=== PATIENT | male | born 1980 | race Caucasian/White ===

== ENCOUNTER 2018-04-01 14:27 | Observation (INO) ==
[2018-04-01 15:38] LABS: Baso # (Auto) 0.1 th/mm3 (0.0-0.2); Baso % (Auto) 0.7 % (0.0-2.0); Eos # (Auto) 0.3 th/mm3 (0.0-0.4); Eos % (Auto) 3.3 % (0.0-4.0); Hematocrit 41.1 % (39.0-51.0); Hemoglobin 14.1 gm/dL (13.0-17.0); Lymph # (Auto) 1.4 th/mm3 (1.0-4.8); Lymph % (Auto) 18.2 % (9.0-44.0); Mean Corpuscular HGB Conc 34.4 % (32.0-36.0); Mean Corpuscular Hemoglobin 28.6 pg (27.0-34.0); Mean Corpuscular Volume 83.3 fL (80.0-100.0); Mean Platelet Volume 7.2 fL (7.0-11.0); Neut # (Auto) 4.9 th/mm3 (1.8-7.7); Neut % (Auto) 64.8 % (16.0-70.0); Platelet Count 248 th/mm3 (150-450); Red Blood Count 4.93 mil/mm3 (4.50-5.90); Red Cell Distribution Width 13.7 % (11.6-17.2); White Blood Count 7.6 th/mm3 (4.0-11.0)
--- NOTE | 2018-04-01 15:59 | XR ---
EXAM DATE: 04/01/2018 3:37 PM EDT AGE/SEX: 37 years / Male INDICATIONS: . Chest pain. CLINICAL DATA: This is the patient's initial encounter. Patient reports that signs and symptoms have been present for 2 weeks and indicates a pain score of 5/10. MEDICAL/SURGICAL HISTORY: . High cholesterol, hypertension. None. COMPARISON: No prior exams available for comparison. FINDINGS: PA and lateral views of the chest demonstrate the lungs to be symmetrically aerated without evidence of mass, infiltrate or effusion. The cardiomediastinal contours are unremarkable. Osseous structures are intact. CONCLUSION: Negative examination. Electronically signed by: Sloan Moore MD 04/01/2018 3:58 PM EDT
[2018-04-01 16:04] LABS: Alanine Aminotransferase 65 U/L (12-78); Albumin 3.9 g/dL (3.4-5.0); Anion Gap 7 meq/L (5-15); Aspartate Aminotransferase 40 U/L (15-37); Blood Urea Nitrogen 18 mg/dL (7-18); Carbon Dioxide 28.6 meq/L (21.0-32.0); Chloride 107 meq/L (98-107); Glomerular Filtration Rate 75 mL/min (>89); Glucose,Random 82 mg/dL (74-106); Potassium 4.1 meq/L (3.5-5.1); Sodium 143 meq/L (136-145)
[2018-04-01 16:08] LABS: Alkaline Phosphatase 74 U/L (45-117); Total Protein 6.9 g/dL (6.4-8.2); Troponin I 0.19 ng/mL (0.02-0.05)
--- NOTE | 2018-04-01 16:29 | ED ---
HPI General Chief Complaint: Chest Pain Stated Complaint: High BP/ Pain Time Seen by Provider: 04/01/18 16:05 Source: patient Mode of arrival: ambulatory Limitations: no limitations History of Present Illness HPI narrative: 37-year-old male with PMH of HTN, PTSD presents to the ED for evaluation of 2-week history of 5/10 left-sided chest pain. Pain is substernal and anterolateral. Onset at rest. Aching in quality with occasional sharp pains. Rated 8/10. He states that he noticed that the pain got worse when he was cycling. It was improved by resting. Patient endorses palpitations. He states "sometimes I wake up and my heart rate is between 110 and 120." He endorses increased appetite. He endorses occasional shortness of breath. He denies nausea, vomiting, diaphoresis, cough, leg pain, history of blood clot, recent history of immobilization. He endorses distant history of drug use, in remission for 4 years. He endorses using IV drugs "twice." He endorses social alcohol use. He endorses familial history of [place], states "all my male relatives " have heart disease. He states his father just had a "99% blockage" but is unsure of the vessel. He states that the youngest male relative was in his 40s. He endorses history of elevated troponin. He states that he had a stress test in 2010 that was negative. 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 He states that his cholesterol levels were "fine" at last PCP visit in May. Complete Quality Measures for STEMI Alert Patients Related Data Home Medications Medication Instructions Recorded Confirmed lamotrigine [Lamictal] 100 mg PO HS 04/01/18 04/01/18 olmesartan 20 mg PO DAILY 04/01/18 04/01/18 prazosin [Minipress] 5 mg PO HS 04/01/18 04/01/18 trazodone 300 mg PO HS 04/01/18 04/01/18 Allergies Allergy/AdvReac Type Severity Reaction Status Date / Time No Known Allergies Allergy Verified 04/01/18 15:10 Review of Systems ROS: all other systems reviewed are negative [facility] Medical History Medical History Complex posttraumatic stress disorder (Acute) Hypercholesteremia (Acute) Hypertension (Acute) Family History Family History Father Family history of acute myocardial infarction Grandparent Family history of acute myocardial infarction Social History Social History Substance History: Past History Second Hand Smoke Exposure: No Smoking Status: Never smoker How Often Do You Have a Drink Containing Alcohol: Monthly or less Recent Travel in [facility] [email or web address] within the Last 8 Weeks: No Recent Out of Country Travel within the Last 8 Weeks: No Immunization History Tetanus Immunization: <5 Years Tetanus Immunization Year if Known: 2015 Hx Influenza Vaccine This Season: Yes Exam Narrative Exam Narrative: GENERAL: Well-nourished, athletically built white male in no acute distress. SKIN: Focused skin assessment warm/dry. HEAD: Atraumatic. Normocephalic. EYES: Pupils equal and round. No scleral icterus. No injection or drainage. ENT: No nasal bleeding or discharge. Mucous membranes pink and moist. NECK: Trachea midline. No JVD. CARDIOVASCULAR: Regular rate and rhythm. No murmur appreciated. RESPIRATORY: No accessory muscle use. Clear to auscultation. Breath sounds equal bilaterally. GASTROINTESTINAL: Abdomen soft, non-tender, nondistended. Hepatic and splenic margins not palpable. MUSCULOSKELETAL: No obvious deformities. No clubbing. No cyanosis. No edema. Homans sign negative bilaterally. NEUROLOGICAL: Awake and alert. No obvious cranial nerve deficits. Motor grossly within normal limits. Normal speech. PSYCHIATRIC: Appropriate mood and affect; insight and judgment normal. Course Initial Documented Vital Signs Temperature 98.1 F 04/01/18 14:49 Pulse Rate 94 H 04/01/18 14:49 Respiratory Rate 16 04/01/18 14:49 Blood Pressure 161/73 H 04/01/18 14:49 Pulse Oximetry 100 04/01/18 14:49 Last Documented Vital Signs Temperature 98.1 F 04/01/18 14:49 Pulse Rate 78 04/01/18 16:14 Respiratory Rate 18 04/01/18 16:14 Blood Pressure 150/88 H 04/01/18 16:14 Pulse Oximetry 100 04/01/18 16:14 Clinical Decision Support PERC Rule Age greater than or equal to 50: No HR greather than or equal to 100: No Sa02 on room air is less than 95%: No Unilateral Leg Swelling: No Hemoptysis: No Recent Surgery or Trauma: No Prior PE or DVT: No Hormone Use: No Medical Decision Making MDM Narrative Medical decision making narrative: 37-year-old male with PMH of HTN presents the ED for evaluation of 2 week history of substernal and anterolateral chest pain. Worsened by exertion. Vitals reviewed. No reproducible tenderness of the precordium. Regular rate and rhythm without appreciable M/R/G. Chest CTA B. Patient was administered sublingual nitroglycerin. This did not improve his symptoms. He was administered 4 mg morphine IV. EKG rate 76, sinus rhythm. SD interval 147, QRS 94, QTc 375 ms. Normal axis. No acute ST changes. Reviewed by Dr. Segura. CXR: No acute cardiopulmonary disease. Troponin 0 0.19. No concerning abnormalities of CBC, CMP, tox screen. I discussed the results of the workup with the patient as well as the recommendation for observation admission. He is agreeable to this plan. Heparin bolus and drip was initiated. I spoke with Dr. Parsons who agrees to accept the patient to the medicine service. Please see medicine notes for disposition. Medical Screen Exam Complete: Yes Emergency Medical Condition: Yes Differential Diagnosis Differential Diagnosis: Chest pain versus ACS versus angina versus musculoskeletal pain versus other Lab Data Result diagrams: 04/01/18 15:20 04/01/18 15:20 Lab Results 04/01/18 04/01/18 04/01/18 Range/Units 15:15 15:20 15:20 WBC 7.6 (4.0-11.0) th/mm3 RBC 4.93 (4.50-5.90) mil/mm3 Hgb 14.1 (13.0-17.0) gm/dL Hct 41.1 (39.0-51.0) % MCV 83.3 (80.0-100.0) fL MCH 28.6 (27.0-34.0) pg MCHC 34.4 (32.0-36.0) % RDW 13.7 (11.6-17.2) % Plt Count 248 (150-450) th/mm3 MPV 7.2 (7.0-11.0) fL Neut % (Auto) 64.8 (16.0-70.0) % Lymph % (Auto) 18.2 (9.0-44.0) % Hayes % (Auto) 13.0 H (0.0-8.0) % Eos % (Auto) 3.3 (0.0-4.0) % Baso % (Auto) 0.7 (0.0-2.0) % Neut # (Auto) 4.9 (1.8-7.7) th/mm3 Lymph # (Auto) 1.4 (1.0-4.8) th/mm3 Hayes # (Auto) 1.0 H (0.0-0.9) th/mm3 Eos # (Auto) 0.3 (0.0-0.4) th/mm3 Baso # (Auto) 0.1 (0.0-0.2) th/mm3 WBC Differential . Differential Comment Auto diff final Sodium 143 (136-145) meq/L Potassium 4.1 (3.5-5.1) meq/L Chloride 107 (98-107) meq/L Carbon Dioxide 28.6 (21.0-32.0) meq/L Anion Gap 7 (5-15) meq/L BUN 18 (7-18) mg/dL Creatinine 1.11 (0.60-1.30) mg/dL Estimated GFR 75 L (>89) mL/min Random Glucose 82 (74-106) mg/dL Calcium 9.0 (8.5-10.1) mg/dL Total Bilirubin 0.3 (0.2-1.0) mg/dL AST 40 H (15-37) U/L ALT 65 (12-78) U/L Alkaline Phosphatase 74 (45-117) U/L Troponin I 0.19 H (0.02-0.05) ng/mL Total Protein 6.9 (6.4-8.2) g/dL Albumin 3.9 (3.4-5.0) g/dL Urine Opiates Screen Neg (Neg) Ur Barbiturates Screen Neg (Neg) Ur Amphetamines Screen Neg (Neg) U Benzodiazepines Scrn Neg (Neg) Urine Cocaine Screen Neg (Neg) U Cannabinoids Screen Neg (Neg) Imaging Data Radiologist's impression: Chest X-Ray 04/01/18 15:11 CONCLUSION: Negative examination. Discharge Plan Discharge Disposition Patient Disposition: 30 Still Patient Discharge Details Diagnosis: Chest pain, Elevated troponin Physicians Team ED Provider: Amairani Segura ED Midlevel Provider: Chitra Sexton Rxs /Orders / Referrals /Forms Prescriptions: No Action prazosin [Minipress] 5 mg Capsule 5 mg PO HS RF: 0 trazodone 300 mg Tablet 300 mg PO HS RF: 0 lamotrigine [Lamictal] 100 mg Tablet 100 mg PO HS RF: 0 olmesartan 20 mg Tablet 20 mg PO DAILY RF: 0 Discharge Instructions Patient Printed Instructions: Chest Pain (ED) Discharge Interventions Interventions: Vital Signs Last Done: 04/01/18 14:49 Status ED Status: With Doctor
[2018-04-01 16:43] LABS: Amphetamine Screen,Urine Neg (Neg); Barbiturate Screen,Urine Neg (Neg); Cannabinoid Screen,Urine Neg (Neg); Cocaine Screen,Urine Neg (Neg)
[2018-04-01 16:51] LABS: Opiate Screen,Urine Neg (Neg)
[2018-04-01] MEDS ORDERED: Morphine Inj 4 MG/ML Vial IV.PUSH ONE (16:52)
[2018-04-01] MEDS ORDERED: Heparin Drip 25,000 UNIT/250 ML BAG IV.CONT PRN (16:52)
[2018-04-01] MEDS ORDERED: Heparin 10,000 UNITS/10 ML Vial (for IV use) IV.PUSH STA (16:52)
--- NOTE | 2018-04-01 17:57 | P.HPIM ---
History of Present Illness Chief Complaint: Chest pain History of Present Illness: The patient is a 37 year old male with a past medical history significant for PTSD who is presenting to the hospital with chest pain. The patient said that he first started feeling the chest pain about two weeks ago, so he toned down his weight lifting routine. He endorsed an ache in his left upper chest wall and on his left chest. Working out makes the pain worse. He has been focusing more on cardio recently to see if that would help with the chest pain. He said that he sometimes would see black spots appear while he worked out. He noticed that his heart rate has been elevated, anywhere from 90 to 120 even at rest. He endorses the sensation of palpitations. He denies any recent medication changes. He drinks one cup of coffee daily and two protein shakes daily. He endorses left sided neck pain over the past few weeks. He has not worked out for the past four days to see if that would help with his symptoms. He endorses increasing appetite recently, but no weight gain. He endorses normal bowel habits. He says years ago he had chest pain and had a negative stress test at that time. Inpatient Certification: I certify that the inpatient services were ordered in accordance with Medicare regulations governing the order. This includes certification that hospital inpatient services are reasonable and necessary and in the case of services not specified as inpatient-only under 42 CFR 419.22(n), that they are appropriately provided as inpatient services in accordance to with the 2-midnight benchmark under 43 CFR 412.3(e) Review of Systems All other systems reviewed negative except as stated [facility] - History History Provided By: Patient - Medical History Medical History: Medical History (Last Reviewed 04/01/18 @ 17:58 by Moody Parsons DO) Complex posttraumatic stress disorder Hypercholesteremia Hypertension - Surgical History Surgical History: Surgical History (Last Updated 04/01/18 @ 18:01 by Moody Parsons DO) H/O vasectomy Hx of spinal fusion S/P hardware removal - Family History Family History: Family History (Last Reviewed 04/01/18 @ 18:02 by Moody Parsons DO) Father Family history of acute myocardial infarction Grandparent Family history of acute myocardial infarction - Social History I have reviewed the patient's Social History: Yes - Tobacco History Second Hand Smoke Exposure: No Smoking Status: Never smoker - Alcohol History How Often Do You Have a Drink Containing Alcohol: Never - Substance Use History Substance History: Past History - Travel History Recent Travel in the [place] Within the Last 8 Weeks: No Recent Travel Out of the Country Within the Last 8 Weeks: No - Immunization History Tetanus Immunization: <5 Years Tetanus Immunization Year if Known: 2015 Hx Influenza Vaccine This Season: Yes Medications and Allergies Active Medications: Active Medications Heparin Sodium/Dextrose (Heparin/D5w 25,000 U/250 Ml) 25,000 unit in 250 mls @ 0 mls/hr IV.CONT TITRATE PRN; Protocol PRN Reason: Per Protocol Sodium Chloride (Ns Inj) 1,000 mls @ 100 mls/hr IV.CONT .Q10H KIAN Stop: 04/02/18 03:29 Lamotrigine (Lamictal) 100 mg PO HS [facility] Non-Formulary Medication (Olmesartan [Olmesartan]) 20 mg PO DAILY [facility] Non-Formulary Medication (Trazodone [Trazodone]) 300 mg PO HS [facility] Prazosin HCl (Minipress) 5 mg PO HS [facility] Senna/Docusate Sodium (Parisa-Colace) 1 tab PO BID [facility] Allergies Allergy/AdvReac Type Severity Reaction Status Date / Time No Known Allergies Allergy Verified 04/01/18 15:10 Home Medications Medication Instructions Recorded Confirmed Type lamotrigine [Lamictal] 100 mg PO HS 04/01/18 04/01/18 History olmesartan 20 mg PO DAILY 04/01/18 04/01/18 History prazosin [Minipress] 5 mg PO HS 04/01/18 04/01/18 History trazodone 300 mg PO HS 04/01/18 04/01/18 History Exam Vital signs: Vital Signs 04/01/18 14:49 04/01/18 16:14 Temperature 98.1 F Pulse Rate 94 H 78 Respiratory Rate 16 18 Blood Pressure 161/73 H 150/88 H Pulse Oximetry 100 100 Intake & Output 03/31/18 04/01/18 04/01/18 18:59 06:59 18:59 Weight 90.718 kg Narrative: GENERAL: Well-nourished male in no acute distress. SKIN: Focused skin assessment warm/dry. HEAD: Atraumatic. Normocephalic. EYES: Pupils equal and round. No scleral icterus. No injection or drainage. ENT: No nasal bleeding or discharge. Mucous membranes pink and moist. Evidence of cerumen impaction in left ear. NECK: Trachea midline. No JVD. CARDIOVASCULAR: Regular rate and rhythm. No murmur appreciated. RESPIRATORY: No accessory muscle use. Clear to auscultation. Breath sounds equal bilaterally. GASTROINTESTINAL: Abdomen soft, non-tender, nondistended. Hepatic and splenic margins not palpable. MUSCULOSKELETAL: No obvious deformities. No clubbing. No cyanosis. No edema. Homans sign negative bilaterally. NEUROLOGICAL: Awake and alert. No obvious cranial nerve deficits. Motor grossly within normal limits. Normal speech. PSYCHIATRIC: Appropriate mood and affect; insight and judgment normal. Results - Labs CBC & Chem 7: 04/01/18 15:20 04/01/18 15:20 Labs: Short CBC 04/01/18 Range/Units 15:20 WBC 7.6 (4.0-11.0) th/mm3 Hgb 14.1 (13.0-17.0) gm/dL Hct 41.1 (39.0-51.0) % Plt Count 248 (150-450) th/mm3 BMP 04/01/18 15:20 Sodium 143 Potassium 4.1 Chloride 107 Carbon Dioxide 28.6 BUN 18 Creatinine 1.11 Calcium 9.0 Cardiac Enzymes 04/01/18 Range/Units 15:20 Troponin I 0.19 H (0.02-0.05) ng/mL Liver Function 04/01/18 Range/Units 15:20 Total Bilirubin 0.3 (0.2-1.0) mg/dL AST 40 H (15-37) U/L ALT 65 (12-78) U/L Alkaline Phosphatase 74 (45-117) U/L Albumin 3.9 (3.4-5.0) g/dL - Imaging Impressions Chest X-Ray 04/01/18 15:11 CONCLUSION: Negative examination. Caprini VTE Risk Assessment Caprini VTE Risk Assessment: Moderate/High Risk (score >= 2) Caprini Risk Assessment Model: Point Value = 1 Point Value = 2 Point Value = 3 Point Value = 5 Age 41-60 Minor surgery BMI > 25 kg/m2 Swollen legs Varicose veins or History of unexplained or recurrent spontaneous Oral contraceptives or hormone replacement Sepsis (< 1 month) Serious lung disease, including pneumonia (< 1 month) Abnormal pulmonary function Acute myocardial infarction Congestive heart failure (< 1 month) History of inflammatory bowel disease Medical patient at bed rest Age 61-74 Arthroscopic surgery Major open surgery (> 45 min) Laparoscopic surgery (> 45 min) Malignancy Confined to bed (> 72 hours) Immobilizing plaster cast Central venous access Age >= 75 History of VTE Family history of VTE Factor V Leiden Prothrombin [id number] Lupus anticoagulant Anticardiolipin antibodies Elevated serum homocysteine Heparin-induced thrombocytopenia Other congenital or acquired thrombophilia Stroke (< 1 month) Elective arthroplasty Hip, pelvis, or leg fracture Acute spinal cord injury (< 1 month) Prophylaxis Regimen: Total Risk Factor Score Risk Level Prophylaxis Regimen 0-1 Low Early ambulation 2 Moderate Order ONE of the following: *Sequential Compression Device (SCD) *Heparin 5000 units SQ BID 3-4 Higher Order ONE of the following medications: *Heparin 5000 units SQ TID *Enoxaparin/Lovenox 40 mg SQ daily (WT < 150 kg, CrCl > 30 mL/min) *Enoxaparin/Lovenox 30 mg SQ daily (WT < 150 kg, CrCl > 10-29 mL/min) *Enoxaparin/Lovenox 30 mg SQ BID (WT < 150 kg, CrCl > 30 mL/min) AND/OR *Sequential Compression Device (SCD) 5 or more Highest Order ONE of the following medications: *Heparin 5000 units SQ TID (Preferred with Epidurals) *Enoxaparin/Lovenox 40 mg SQ daily (WT < 150 kg, CrCl > 30 mL/min) *Enoxaparin/Lovenox 30 mg SQ daily (WT < 150 kg, CrCl > 10-29 mL/min) *Enoxaparin/Lovenox 30 mg SQ BID (WT < 150 kg, CrCl > 30 mL/min) AND *Sequential Compression Device (SCD) Assessment and Plan - Plan Chest pain Off and on for the past couple of weeks. May be s/t musculoskeletal pain as has been working out regularly. EKG without acute ischemia. CXR negative. Initial troponin 0.19. Started on a heparin gtt in the ED. -continue heparin gtt. -cardiology consult requested. -telemetry. -pain control and oxygen as needed. -check CPK. Palpitations The pt endorses tachycardia. May be s/t PTSD and anxiety. -cardiac work-up as above. -anxiolytics as needed. -check a TSH. Left ear pain May be s/t cerumen build-up. -trial of Debrox drops. PTSD Chronic. -resume home regimen. HTN May be exacerbated by pain. -resume home arb. -clonidine as needed. PPx: Heparin gtt
[2018-04-01] MEDS ORDERED: Sod Chloride 0.9% Inj 1,000 ML IV.CONT SCH (19:00)
[2018-04-01 19:58] LABS: Activated Partial Thrombo Time 26.6 sec (24.3-30.1); Prothrombin Time 10.3 sec (9.8-11.6)
[2018-04-01] MEDS: Carbamide Peroxide 6.5% Otic Drops 15 ML Bottle LEFT EAR SCH (20:16)
[2018-04-01] MEDS ORDERED: traZODone 100 MG Tablet PO SCH (21:00)
[2018-04-01] MEDS ORDERED: lamoTRIgine 100 MG Tablet PO SCH (21:00)
[2018-04-01 21:58] LABS: CKMB Percent 0.6 % (0.0-4.0)
[2018-04-01] MEDS: Senna/Docusate Sodium 8.6/50 MG Tablet PO SCH (22:37)
[2018-04-02] MEDS: Morphine Inj 4 MG/ML Vial IV.PUSH PRN ×2 (04:50→15:36)
[2018-04-02 05:58] LABS: Troponin I 0.17 ng/mL (0.02-0.05)
[2018-04-02 06:10] LABS: CKMB Percent 0.6 % (0.0-4.0); Creatine Kinase MB 2.1 ng/mL (0.5-3.6)
[2018-04-02 07:22] LABS: Baso # (Auto) 0.1 th/mm3 (0.0-0.2); Baso % (Auto) 0.9 % (0.0-2.0); Eos # (Auto) 0.5 th/mm3 (0.0-0.4); Hematocrit 41.2 % (39.0-51.0); Lymph # (Auto) 1.7 th/mm3 (1.0-4.8); Lymph % (Auto) 26.4 % (9.0-44.0); Mean Corpuscular HGB Conc 34.1 % (32.0-36.0); Mean Corpuscular Hemoglobin 28.2 pg (27.0-34.0); Mean Corpuscular Volume 82.7 fL (80.0-100.0); Mean Platelet Volume 7.5 fL (7.0-11.0); Mono # (Auto) 0.9 th/mm3 (0.0-0.9); Neut # (Auto) 3.4 th/mm3 (1.8-7.7); Neut % (Auto) 51.7 % (16.0-70.0); Platelet Count 230 th/mm3 (150-450); Red Blood Count 4.98 mil/mm3 (4.50-5.90); Red Cell Distribution Width 13.9 % (11.6-17.2); White Blood Count 6.6 th/mm3 (4.0-11.0)
[2018-04-02 08:00] LABS: Albumin 3.5 g/dL (3.4-5.0); Anion Gap 9 meq/L (5-15); Aspartate Aminotransferase 30 U/L (15-37); Blood Urea Nitrogen 18 mg/dL (7-18); Calcium 8.3 mg/dL (8.5-10.1); Chloride 106 meq/L (98-107); Glomerular Filtration Rate 81 mL/min (>89); Glucose,Random 92 mg/dL (74-106); Sodium 142 meq/L (136-145)
[2018-04-02] MEDS: Senna/Docusate Sodium 8.6/50 MG Tablet PO SCH (08:03)
[2018-04-02 08:05] LABS: Alanine Aminotransferase 53 U/L (12-78); Alkaline Phosphatase 67 U/L (45-117); Creatine Kinase 352 U/L (39-308); Total Protein 6.7 g/dL (6.4-8.2); Troponin I 0.18 ng/mL (0.02-0.05)
[2018-04-02] MEDS: Carbamide Peroxide 6.5% Otic Drops 15 ML Bottle LEFT EAR SCH (08:05)
[2018-04-02] MEDS ORDERED: Acetaminophen 325 MG Tablet PO PRN (08:08)
--- NOTE | 2018-04-02 08:40 | P.CONCA ---
History of Present Illness Primary Care Provider: UNKNOWN Chief Complaint: Chest pain History of Present Illness: This is a very pleasant 37 year old gentleman with a past medical history of HTN , borderline HLD, family hx of premature CAD, PTSD who presents with worsening chest pain. He reports that he first noticed a substernal dullness that occured at rest 2 weeks ago. He notes that this discomfort gets worse with exertion. Associated symptoms include shortness of breath and palpatations. He has strong family hx of CAD, with his father having an PA at the age of 40. No DM2, current smoking. He is on an ARB for his HTN and medications for PTSD. He reports a history of a negative stress test in the past. He states that morphine helped his chest pain but not NTG. Review of Systems All other systems reviewed negative except as stated in HPI [facility] - History History Provided By: Patient - Medical History Medical History: Medical History (Last Reviewed 04/01/18 @ 17:58 by Moody Parsons DO) Complex posttraumatic stress disorder Hypercholesteremia Hypertension - Surgical History Surgical History: Surgical History (Last Updated 04/01/18 @ 18:01 by Moody Parsons DO) H/O vasectomy Hx of spinal fusion S/P hardware removal - Family History Family History: Family History (Last Reviewed 04/01/18 @ 18:02 by Moody Parsons DO) Father Family history of acute myocardial infarction Grandparent Family history of acute myocardial infarction - Tobacco History Second Hand Smoke Exposure: No Smoking Status: Never smoker - Alcohol History How Often Do You Have a Drink Containing Alcohol: Never - Substance Use History Substance History: Past History - Travel History Recent Travel in the [place] Within the Last 8 Weeks: No Recent Travel Out of the Country Within the Last 8 Weeks: No - Immunization History Tetanus Immunization: <5 Years Tetanus Immunization Year if Known: 2016 Hx Influenza Vaccine This Season: Yes Medications and Allergies Active Medications: Active Medications Acetaminophen (Tylenol) 650 mg PO Q4H PRN PRN Reason: Temp > 100.4 Carbamide Peroxide (Debrox 6.5% Otic Drops) 5 drops LEFT EAR Q12HR [facility] Last Admin: 04/02/18 08:05 Dose: 5 drops Heparin Sodium/Dextrose (Heparin/D5w 25,000 U/250 Ml) 25,000 unit in 250 mls @ 0 mls/hr IV.CONT TITRATE PRN; Protocol PRN Reason: Per Protocol Last Titration: 04/02/18 02:57 Dose: 11 units/hr, 0.11 mls/hr Lamotrigine (Lamictal) 100 mg PO [facility] Last Admin: 04/01/18 20:15 Dose: 100 mg Losartan Potassium (Cozaar) 50 mg PO DAILY [facility] Last Admin: 04/02/18 08:03 Dose: 50 mg Morphine Sulfate (Morphine Inj) 4 mg IV.PUSH Q4H PRN PRN Reason: BREAKTHROUGH PAIN Last Admin: 04/02/18 04:50 Dose: 4 mg Nitroglycerin (Nitrostat Sl) 0.4 mg SL Q5M PRN PRN Reason: CHEST PAIN Ondansetron HCl (Zofran Inj) 4 mg IV.PUSH Q6H PRN PRN Reason: NAUSEA Oxycodone/Acetaminophen (Percocet 5/325 Mg) 1 tab PO Q4H PRN PRN Reason: pain 3-10 Last Admin: 04/02/18 08:03 Dose: 1 tab Prazosin HCl (Minipress) 5 mg PO [facility] Last Admin: 04/01/18 20:15 Dose: 5 mg Senna/Docusate Sodium (Parisa-Colace) 1 tab PO BID [facility] Last Admin: 04/02/18 08:03 Dose: 1 tab Trazodone HCl (Desyrel) 300 mg PO [facility] Last Admin: 04/01/18 21:46 Dose: 300 mg Allergies Allergy/AdvReac Type Severity Reaction Status Date / Time No Known Allergies Allergy Verified 04/01/18 15:10 Home Medications Medication Instructions Recorded Confirmed Type lamotrigine [Lamictal] 100 mg PO 04/01/18 04/01/18 History olmesartan 20 mg PO DAILY 04/01/18 04/01/18 History prazosin [Minipress] 5 mg PO 04/01/18 04/01/18 History trazodone 300 mg PO 04/01/18 04/01/18 History Exam Vital signs: Vital Signs 04/01/18 14:49 04/01/18 16:14 04/01/18 18:25 Temperature 98.1 F 97.9 F Pulse Rate 94 H 78 78 Respiratory Rate 16 18 18 Blood Pressure 161/73 H 150/88 H 130/71 Pulse Oximetry 100 100 98 04/01/18 18:55 04/01/18 20:00 04/01/18 20:11 Temperature Pulse Rate Respiratory Rate 18 16 Blood Pressure Pulse Oximetry 98 04/01/18 20:12 04/01/18 23:02 04/02/18 02:30 Temperature 98 F 97.7 F Pulse Rate 70 81 Respiratory Rate 18 18 15 Blood Pressure 166/60 H 117/56 L Pulse Oximetry 95 94 L 04/02/18 03:49 04/02/18 05:25 04/02/18 08:00 Temperature 97.4 F L 97.5 F L Pulse Rate 74 85 Respiratory Rate 18 16 14 Blood Pressure 141/65 H 136/84 Pulse Oximetry 95 98 Intake & Output 04/01/18 04/02/18 04/02/18 18:59 06:59 18:59 Intake Total 1000 / 1000 Output Total 1500 / 1500 Balance -500 / -500 Weight 90.718 kg Intake: IV 1000 / 1000 NS Inj 1,000 ML @ 100 mls/hr IV 1000 / 1000 .CONT .Q10H [facility] Rx#:[id number] Output: Urine 1500 / 1500 - Constitutional no acute distress - Routine HEENT Exam Head: Present: normocephalic Eye: Present: EOMI, PERRL ENT: Present: mucous membranes moist - Routine Neck Exam Present: supple. Absent: JVD - Routine Respiratory Exam Present: CTA bilaterally - Routine Cardiovascular Exam Present: RRR, S1, S2 - Routine Abdominal Exam Present: soft, normoactive bowel sounds - Routine Extremities Exam Absent: edema - Routine Skin Exam Present: intact - Routine Neurological Exam Present: alert, oriented X3 - Routine Psychiatric Exam Present: normal affect Results 04/02/18 06:12 04/02/18 06:12 Cardiac Enzymes 04/01/18 04/01/18 04/01/18 Range/Units 15:20 20:37 20:37 AST 40 H (15-37) U/L CK-MB (CK-2) 3.0 (0.5-3.6) ng/mL Troponin I 0.19 H 0.19 H (0.02-0.05) ng/mL 04/02/18 04/02/18 Range/Units 05:15 06:12 AST 30 (15-37) U/L CK-MB (CK-2) 2.1 (0.5-3.6) ng/mL Troponin I 0.17 H 0.18 H (0.02-0.05) ng/mL Coagulation 04/01/18 04/01/18 04/02/18 Range/Units 18:45 18:45 00:48 PT 10.3 (9.8-11.6) sec APTT 26.6 Cancelled 28.8 (24.3-30.1) sec CBC 04/01/18 04/02/18 Range/Units 15:20 06:12 WBC 7.6 6.6 (4.0-11.0) th/mm3 RBC 4.93 4.98 (4.50-5.90) mil/mm3 Hgb 14.1 14.0 (13.0-17.0) gm/dL Hct 41.1 41.2 (39.0-51.0) % Plt Count 248 230 (150-450) th/mm3 Neut # (Auto) 4.9 3.4 (1.8-7.7) th/mm3 Lymph # (Auto) 1.4 1.7 (1.0-4.8) th/mm3 [place] # (Auto) 1.0 H 0.9 (0.0-0.9) th/mm3 Eos # (Auto) 0.3 0.5 H (0.0-0.4) th/mm3 Baso # (Auto) 0.1 0.1 (0.0-0.2) th/mm3 Comprehensive Metabolic Panel 04/01/18 04/02/18 Range/Units 15:20 06:12 Sodium 143 142 (136-145) meq/L Potassium 4.1 4.0 (3.5-5.1) meq/L Chloride 107 106 (98-107) meq/L Carbon Dioxide 28.6 27.0 (21.0-32.0) meq/L BUN 18 18 (7-18) mg/dL Creatinine 1.11 1.04 (0.60-1.30) mg/dL Calcium 9.0 8.3 L (8.5-10.1) mg/dL AST 40 H 30 (15-37) U/L ALT 65 53 (12-78) U/L Alkaline Phosphatase 74 67 (45-117) U/L Total Protein 6.9 6.7 (6.4-8.2) g/dL Albumin 3.9 3.5 (3.4-5.0) g/dL Intake and Output 04/01/18 04/02/18 04/02/18 22:59 06:59 14:59 Intake Total 1000 / 1000 Output Total 1500 / 1500 Balance -500 / -500 Intake: IV 1000 / 1000 NS Inj 1,000 ML @ 100 mls/hr IV 1000 / 1000 .CONT .Q10H [facility] Rx#:[id number] Output: Urine 1500 / 1500 EKG interpretations - Dysrhythmias Sinus rhythms and dysrhythmias: sinus rhythm Assessment and Plan - Plan Chest pain HTN borderline HLD Given his family history of premature CAD and HTN I would like to proceed with a Lexiscan and Echo given his elevated troponin. He currently is chest pain free. Thank you for allowing me to participate. Please call with any questions.
[2018-04-02] MEDS ORDERED: clonazePAM 0.5 MG Tablet PO PRN (10:29)
[2018-04-02] MEDS ORDERED: Sod Chloride 0.9% Inj 1,000 ML IV.CONT SCH (10:30)
--- NOTE | 2018-04-02 11:34 | P.PN ---
Subjective Interval history: Follow-up for chest pain: Complaints of chest pressure occasionally sharp, rates at a 6, located under the left breast. Exacerbated by deep breathing and palpation. Did feel nauseous overnight with increased anxiety. No shortness of breath, no palpitations. N.p.o. for stress test. On heparin drip. Telemetry sinus rhythm. Physical Exam Vital signs: Vital Signs 04/01/18 14:49 04/01/18 16:14 04/01/18 18:25 Temperature 98.1 F 97.9 F Pulse Rate 94 H 78 78 Respiratory Rate 16 18 18 Blood Pressure 161/73 H 150/88 H 130/71 Pulse Oximetry 100 100 98 04/01/18 18:55 04/01/18 20:00 04/01/18 20:11 Temperature Pulse Rate Respiratory Rate 18 16 Blood Pressure Pulse Oximetry 98 04/01/18 20:12 04/01/18 23:02 04/02/18 02:30 Temperature 98 F 97.7 F Pulse Rate 70 81 Respiratory Rate 18 18 15 Blood Pressure 166/60 H 117/56 L Pulse Oximetry 95 94 L 04/02/18 03:49 04/02/18 05:25 04/02/18 08:00 Temperature 97.4 F L 97.5 F L Pulse Rate 74 85 Respiratory Rate 18 16 14 Blood Pressure 141/65 H 136/84 Pulse Oximetry 95 98 Intake & Output 04/01/18 04/02/18 04/02/18 18:59 06:59 18:59 Intake Total 1000 / 1000 Output Total 1500 / 1500 Balance -500 / -500 Weight 90.718 kg Intake: IV 1000 / 1000 NS Inj 1,000 ML @ 100 mls/hr IV 1000 / 1000 .CONT .Q10H [facility] Rx#:[id number] Output: Urine 1500 / 1500 Narrative: GENERAL: Well-nourished, well-developed patient in no apparent distress. SKIN: Warm and dry. HEAD: Atraumatic. Normocephalic. EYES: Pupils equal and round. No scleral icterus. No injection or drainage. ENT: No nasal bleeding or discharge. Mucous membranes pink and moist. NECK: Trachea midline. No JVD. CARDIOVASCULAR: Regular rate and rhythm. RESPIRATORY: No accessory muscle use. Clear to auscultation. Breath sounds equal bilaterally. GASTROINTESTINAL: Abdomen soft, non-tender, nondistended. Hepatic and splenic margins not palpable. MUSCULOSKELETAL: Extremities without clubbing, cyanosis, or edema. No obvious deformities. NEUROLOGICAL: Awake and alert. No obvious cranial nerve deficits. Motor grossly within normal limits. Five out of 5 muscle strength in the arms and legs. Normal speech. PSYCHIATRIC: Appropriate mood and affect; insight and judgment normal. Results - Labs CBC & Chem 7: 04/02/18 06:12 04/02/18 06:12 Laboratory Results - last 24 hr 04/01/18 04/01/18 04/01/18 15:15 15:20 15:20 WBC 7.6 RBC 4.93 Hgb 14.1 Hct 41.1 MCV 83.3 MCH 28.6 MCHC 34.4 RDW 13.7 Plt Count 248 MPV 7.2 Neut % (Auto) 64.8 Lymph % (Auto) 18.2 [place] % (Auto) 13.0 H Eos % (Auto) 3.3 Baso % (Auto) 0.7 Neut # (Auto) 4.9 Lymph # (Auto) 1.4 [place] # (Auto) 1.0 H Eos # (Auto) 0.3 Baso # (Auto) 0.1 WBC Differential . Differential Comment Auto diff final PT INR APTT Sodium 143 Potassium 4.1 Chloride 107 Carbon Dioxide 28.6 Anion Gap 7 BUN 18 Creatinine 1.11 Estimated GFR 75 L Random Glucose 82 Calcium 9.0 Total Bilirubin 0.3 AST 40 H ALT 65 Alkaline Phosphatase 74 Total Creatine Kinase CK-MB (CK-2) CK-MB (CK-2) % Troponin I 0.19 H Total Protein 6.9 Albumin 3.9 TSH Urine Opiates Screen Neg Ur Barbiturates Screen Neg Ur Amphetamines Screen Neg U Benzodiazepines Scrn Neg Urine Cocaine Screen Neg U Cannabinoids Screen Neg 04/01/18 04/01/18 04/01/18 15:20 18:45 18:45 WBC RBC Hgb Hct MCV MCH MCHC RDW Plt Count MPV Neut % (Auto) Lymph % (Auto) [place] % (Auto) Eos % (Auto) Baso % (Auto) Neut # (Auto) Lymph # (Auto) [place] # (Auto) Eos # (Auto) Baso # (Auto) WBC Differential Differential Comment PT 10.3 INR 1.0 APTT 26.6 Cancelled Sodium Potassium Chloride Carbon Dioxide Anion Gap BUN Creatinine Estimated GFR Random Glucose Calcium Total Bilirubin AST ALT Alkaline Phosphatase Total Creatine Kinase CK-MB (CK-2) CK-MB (CK-2) % Troponin I Total Protein Albumin TSH 0.946 Urine Opiates Screen Ur Barbiturates Screen Ur Amphetamines Screen U Benzodiazepines Scrn Urine Cocaine Screen U Cannabinoids Screen 04/01/18 04/01/18 04/02/18 20:37 20:37 00:48 WBC RBC Hgb Hct MCV MCH MCHC RDW Plt Count MPV Neut % (Auto) Lymph % (Auto) [place] % (Auto) Eos % (Auto) Baso % (Auto) Neut # (Auto) Lymph # (Auto) [place] # (Auto) Eos # (Auto) Baso # (Auto) WBC Differential Differential Comment PT INR APTT 28.8 Sodium Potassium Chloride Carbon Dioxide Anion Gap BUN Creatinine Estimated GFR Random Glucose Calcium Total Bilirubin AST ALT Alkaline Phosphatase Total Creatine Kinase 493 H CK-MB (CK-2) 3.0 CK-MB (CK-2) % 0.6 Troponin I 0.19 H Total Protein Albumin TSH Urine Opiates Screen Ur Barbiturates Screen Ur Amphetamines Screen U Benzodiazepines Scrn Urine Cocaine Screen U Cannabinoids Screen 04/02/18 04/02/18 04/02/18 05:15 06:12 06:12 WBC 6.6 RBC 4.98 Hgb 14.0 Hct 41.2 MCV 82.7 MCH 28.2 MCHC 34.1 RDW 13.9 Plt Count 230 MPV 7.5 Neut % (Auto) 51.7 Lymph % (Auto) 26.4 [place] % (Auto) 14.0 H Eos % (Auto) 7.0 H Baso % (Auto) 0.9 Neut # (Auto) 3.4 Lymph # (Auto) 1.7 [place] # (Auto) 0.9 Eos # (Auto) 0.5 H Baso # (Auto) 0.1 WBC Differential . Differential Comment Auto diff final PT INR APTT Sodium 142 Potassium 4.0 Chloride 106 Carbon Dioxide 27.0 Anion Gap 9 BUN 18 Creatinine 1.04 Estimated GFR 81 L Random Glucose 92 Calcium 8.3 L Total Bilirubin 0.2 AST 30 ALT 53 Alkaline Phosphatase 67 Total Creatine Kinase 359 H 352 H CK-MB (CK-2) 2.1 CK-MB (CK-2) % 0.6 Troponin I 0.17 H 0.18 H Total Protein 6.7 Albumin 3.5 TSH Urine Opiates Screen Ur Barbiturates Screen Ur Amphetamines Screen U Benzodiazepines Scrn Urine Cocaine Screen U Cannabinoids Screen 04/02/18 08:55 WBC RBC Hgb Hct MCV MCH MCHC RDW Plt Count MPV Neut % (Auto) Lymph % (Auto) [place] % (Auto) Eos % (Auto) Baso % (Auto) Neut # (Auto) Lymph # (Auto) [place] # (Auto) Eos # (Auto) Baso # (Auto) WBC Differential Differential Comment PT INR APTT 28.4 Sodium Potassium Chloride Carbon Dioxide Anion Gap BUN Creatinine Estimated GFR Random Glucose Calcium Total Bilirubin AST ALT Alkaline Phosphatase Total Creatine Kinase CK-MB (CK-2) CK-MB (CK-2) % Troponin I Total Protein Albumin TSH Urine Opiates Screen Ur Barbiturates Screen Ur Amphetamines Screen U Benzodiazepines Scrn Urine Cocaine Screen U Cannabinoids Screen - Imaging Impressions Chest X-Ray 04/01/18 15:11 CONCLUSION: Negative examination. Assessment and Plan - Assessment (1) Elevated troponin Code(s): R74.8 - Abnormal levels of other serum enzymes Status: Acute (2) Rhabdomyolysis Code(s): M62.82 - Rhabdomyolysis Status: Acute (3) Chest pain Code(s): R07.9 - Chest pain, unspecified Status: Acute (4) Anxiety Code(s): F41.9 - Anxiety disorder, unspecified Status: Chronic (5) PTSD (post-traumatic stress disorder) Code(s): F43.10 - Post-traumatic stress disorder, unspecified Status: Chronic - Plan 37 year old male with a past medical history significant for PTSD who is presenting to the hospital with chest pain. The patient said that he first started feeling the chest pain about two weeks ago, so he toned down his weight lifting routine. He endorsed an ache in his left upper chest wall and on his left chest. Working out makes the pain worse. He has been focusing more on cardio recently to see if that would help with the chest pain. He said that he sometimes would see black spots appear while he worked out. He noticed that his heart rate has been elevated, anywhere from 90 to 120 even at rest. He endorses the sensation of palpitations.He endorsed left sided neck pain over the past few weeks. He has not worked out for the past four days to see if that would help with his symptoms. He says years ago he had chest pain and had a negative stress test at that time. Chest pain Off and on for the past couple of weeks. May be s/t musculoskeletal pain as has been working out regularly. EKG without acute ischemia. CXR negative. Initial troponin 0.19. Started on a heparin gtt in the ED. Continues to have pressure underneath left breast, a 6 on scale. Worse with deep breathing and on palpation. No radiation. Increase anxiety overnight. Family history of coronary artery disease -continue heparin gtt. -Etiology input appreciated, recommends nuclear med stress test and echo -serial troponin 3 completed, did not trend up. -telemetry. -pain control and oxygen as needed. -Aspirin 81 mg p.o. daily Check lipid profile in a.m. -check CPK initially elevated, trending down, 352 today. Palpitations The pt endorses tachycardia. May be s/t PTSD and anxiety. -cardiac work-up as above. -Clonazepam 0.5 mg p.o. every 8 as needed for anxiety. -TSH normal Left ear pain May be s/t cerumen build-up. -trial of Debrox drops. Mild rhabdomyolysis, has been recently working out and biking -Trending CPK, 352 today. -Normal saline at 50 an hour. PTSD Chronic. -Continue home regimen. HTN May be exacerbated by pain. -resume home arb. -clonidine as needed. PPx: Heparin gtt We will follow-up after nuclear med stress test, if negative possible discharge later today Discussed with RN, case management, patient. (3) Chest pain Qualifiers: Chest pain type: chest pain on breathing Qualified Code(s): R07.1 - Chest pain on breathing; R07.81 - Pleurodynia
[2018-04-02 11:45] LABS: Chol/HDL Ratio 3.87 Ratio; HDL Cholesterol 46.5 mg/dL (40.0-60.0)
[2018-04-02] MEDS ORDERED: Regadenoson Inj 0.4 MG/5 ML Syringe IV.PUSH ONE (13:26)
--- NOTE | 2018-04-02 13:57 | ECG ---
Date Performed: 04/01/2018 Time Performed: 15:17:08 PTAGE: 37 years EKG: Sinus rhythm NORMAL ECG Since the PREVIOUS TRACING , no significant change noted PREVIOUS TRACING DOCTOR: Treva Portillo Interpretating Date/Time 04/02/2018 13:55:34
--- NOTE | 2018-04-02 13:57 | ECG ---
Date Performed: 04/02/2018 Time Performed: 04:20:39 PTAGE: 37 years EKG: Sinus rhythm NORMAL ECG Since the PREVIOUS TRACING , no significant change noted PREVIOUS TRACING DOCTOR: Treva Portillo Interpretating Date/Time 04/02/2018 13:55:48
--- NOTE | 2018-04-02 15:03 | NM ---
EXAM DATE: 04/02/2018 2:39 PM EDT AGE/SEX: 37 years / Male INDICATIONS:Myocardial infarction. . Left chest pain with dyspnea. CLINICAL DATA: This is the patient's initial encounter. Patient reports that signs and symptoms have been present for 2 weeks and indicates a pain score of 8/10. MEDICAL/SURGICAL HISTORY: Hypercholesterolemia. Hypertension. Fusion, lumbar. COMPARISON: No prior exams available for comparison. DOSE: 8.5 mCi Tc 99m Myoview at rest 26.9 mCi [id number] at stress 0.4 mg Lexiscan STRESS SYMPTOMS: Short of breath and chest pressure. EJECTION FRACTION: 45 % TECHNIQUE: The patient underwent pharmacologic stress with infusion of prescribed dose. Continuous ECG tracing was monitored during stress. Gated SPECT imaging was performed after stress and conventi onal SPECT imaging was performed at rest. The examination was performed on a SPECT/CT scanner, both attenuation and non-corrected datasets were reviewed. FINDINGS: Distribution: The maximum perfused segment at stress is in the anterior inferior wall. Perfusion Study: The pattern of perfusion at stress is within normal limits. Gated Study: There are intact wall motion and wall thickening without hypokinetic or dyskinetic segm ents. The ejection fraction is calculated at 45%. RISK CATEGORY: Low (<1% Annual Motality Rate) CONCLUSION: 1. Diminished perfusion with global hypokinesis 2. Negative for stress-induced ischemia. Electronically signed by: Pascual Tinsley MD 04/02/2018 3:02 PM EDT
--- NOTE | 2018-04-02 17:12 | ECHRPT ---
Indication: chest pain CONCLUSIONS The left ventricular systolic function is hyperdynamic with an estimated ejection fraction in the ra nge of 65- 70%. Normal left ventricular size. Wall thickness is normal. No regional wall motion abnormalities are present. Trace mitral valve regurgitation. Trivial pulmonary valve regurgitation. BP: / HR: Rhythm: Sinus MEASUREMENTS (Male / Female) Normal Values Technical Quality:Excellent 2D ECHO LV Diastolic Diameter PLAX 5.1 cm 4.2 - 5.9 / 3.9 - 5.3 cm LV Systolic Diameter PLAX 3.4 cm IVS Diastolic Thickness 0.8 cm 0.6 - 1.0 / 0.6 - 0.9 cm LVPW Diastolic Thickness 1.1 cm 0.6 - 1.0 / 0.6 - 0.9 cm LV Relative Wall Thickness 0.4 RV Internal Dim ED PLAX 2.5 cm LVOT Diameter 2.1 cm LA Systolic Diameter LX 3.7 cm 3.0 - 4.0 / 2.7 - 3.8 cm LV Ejection Fraction MOD 4C 63.8 % LV Ejection Fraction 4C AL 64.2 % M-MODE Aortic Root Diameter MM 2.5 cm LA Systolic Diameter MM 3.6 cm LA Ao Ratio MM 1.4 AV Cusp Separation MM 2.2 cm DOPPLER AV Peak Velocity 152.0 cm/s AV Peak Gradient 9.2 mmHg LVOT Peak Velocity 123.0 cm/s LVOT Peak Gradient 6.1 mmHg AV Area Cont Eq pk 2.8 cm MV Area PHT 3.5 cm Mitral E Point Velocity 71.6 cm/s Mitral A Point Velocity 50.8 cm/s Mitral E to A Ratio 1.4 LV E' Lateral Velocity 10.2 cm/s Mitral E to LV E' Lateral Ratio 7.0 LV E' Septal Velocity 6.8 cm/s Mitral E to LV E' Septal Ratio 10.5 PV Peak Velocity 136.0 cm/s PV Peak Gradient 7.4 mmHg FINDINGS LEFT VENTRICLE The left ventricular systolic function is hyperdynamic with an estimated ejection fraction in the ra nge of 65- 70%. Normal left ventricular size. Wall thickness is normal. No regional wall motion abnormalities are present. RIGHT VENTRICLE Normal right ventricular size and systolic function. LEFT ATRIUM The left atrial size is normal. RIGHT ATRIUM The right atrial size is normal. ATRIAL SEPTUM Normal atrial septal thickness without atrial level shunting by limited color doppler interrogation. AORTA The aortic root and proximal ascending aorta are normal in size on limited imaging. MITRAL VALVE Structurally normal mitral valve. Trace mitral valve regurgitation. AORTIC VALVE Trileaflet aortic valve. No aortic valve stenosis or regurgitation. TRICUSPID VALVE Structurally normal tricuspid valve. No tricuspid valve stenosis or regurgitation. PULMONARY VALVE Trivial pulmonary valve regurgitation. VESSELS The inferior vena cava is normal in size. PERICARDIUM No pericardial effusion. Omar Reyes MD, FACC (Electronically Signed) Final Date:02 April 2018 17:11
== END 2018-04-02 18:55 | disposition home or self-care (01) ==
LOC: NEDA 14:27 → NEPE 14:27 → NEPGCP 18:20
PROVIDERS: ADMIT Hospitalist; ATTEND Hospitalist
DX: Z79.82 Long term (current) use of aspirin; I25.2 Old myocardial infarction; E78.00 Pure hypercholesterolemia, unspecified; I10 Essential (primary) hypertension; F41.9 Anxiety disorder, unspecified; R74.8 Abnormal levels of other serum enzymes; E78.5 Hyperlipidemia, unspecified; M62.82 Rhabdomyolysis; H92.02 Otalgia, left ear; F43.12 Post-traumatic stress disorder, chronic; R07.9 Chest pain, unspecified

== ENCOUNTER 2018-07-30 12:05 | Observation (INO) ==
[2018-07-30] MEDS ORDERED: Adenosine Inj 6 MG/2 ML Syringe IV.PUSH ONE (12:29)
[2018-07-30 12:39] LABS: Baso % (Auto) 0.4 % (0.0-2.0); Eos # (Auto) 0.1 th/mm3 (0.0-0.4); Eos % (Auto) 1.3 % (0.0-4.0); Hematocrit 38.9 % (39.0-51.0); Hemoglobin 13.3 gm/dL (13.0-17.0); Lymph # (Auto) 1.3 th/mm3 (1.0-4.8); Lymph % (Auto) 12.5 % (9.0-44.0); Mean Corpuscular HGB Conc 34.3 % (32.0-36.0); Mean Corpuscular Hemoglobin 29.5 pg (27.0-34.0); Mean Corpuscular Volume 86.1 fL (80.0-100.0); Mean Platelet Volume 7.1 fL (7.0-11.0); Mono # (Auto) 0.6 th/mm3 (0.0-0.9); Mono % (Auto) 6.2 % (0.0-8.0); Neut # (Auto) 8.2 th/mm3 (1.8-7.7); Neut % (Auto) 79.6 % (16.0-70.0); Platelet Count 261 th/mm3 (150-450); Red Blood Count 4.52 mil/mm3 (4.50-5.90); Red Cell Distribution Width 14.4 % (11.6-17.2); White Blood Count 10.3 th/mm3 (4.0-11.0)
[2018-07-30 12:50] LABS: Activated Partial Thrombo Time 24.2 sec (23.4-31.7); Prothrombin Time 10.3 sec (9.8-11.6)
[2018-07-30] MEDS ORDERED: Sodium Chlor 0.9% Inj 500 ML IV.SIG SCH (13:00)
[2018-07-30 13:01] LABS: Alanine Aminotransferase 68 U/L (12-78); Albumin 3.8 g/dL (3.4-5.0); Alkaline Phosphatase 105 U/L (45-117); Anion Gap 9 meq/L (5-15); Aspartate Aminotransferase 91 U/L (15-37); Blood Urea Nitrogen 19 mg/dL (7-18); Calcium 8.8 mg/dL (8.5-10.1); Carbon Dioxide 25.6 meq/L (21.0-32.0); Chloride 108 meq/L (98-107); Glomerular Filtration Rate 49 mL/min (>89); Glucose,Random 152 mg/dL (74-106); Sodium 143 meq/L (136-145); Total Protein 6.7 g/dL (6.4-8.2); Troponin I 0.04 ng/mL (0.02-0.05)
[2018-07-30] MEDS ORDERED: Famotidine PF Inj 20 MG/2 ML Vial IV.PUSH ONE (13:05)
[2018-07-30] MEDS ORDERED: fentaNYL Citrate Inj 100 MCG/2 ML Ampul IV.PUSH ONE ×2 (13:05→14:43)
--- NOTE | 2018-07-30 13:09 | XR ---
EXAM DATE: 07/30/2018 1:07 PM EST AGE/SEX: 37 years / Male INDICATIONS: Middle to left sided chest pain. CLINICAL DATA: This is the patient's initial encounter. Patient reports that signs and symptoms have been present for 1 day and indicates a pain score of 10/10. MEDICAL/SURGICAL HISTORY: Congestive heart failure. None. COMPARISON: [facility] – [place], [place], CHEST 2V PA&LAT, 04/01/2018. . FINDINGS: The lungs are clear without infiltrate, nodule, or mass. There is no appreciable pleural effusion for technique. Heart and mediastinum are unremarkable. CONCLUSION: No acute cardiopulmonary disease. Electronically signed by: Ora Harris MD Board Certified Radiologist 07/30/2018 1:08 PM EST
[2018-07-30] MEDS ORDERED: Sod Chloride 0.9% Inj 1,000 ML IV.SIG SCH (14:15)
--- NOTE | 2018-07-30 15:17 | CT ---
EXAM DATE: 07/30/2018 3:14 PM EST AGE/SEX: 37 years / Male INDICATIONS: Chest pain. Shortness of breath. CLINICAL DATA: This is the patient's initial encounter. Patient reports that signs and symptoms have been present for 1 day and indicates a pain score of 6/10. MEDICAL/SURGICAL HISTORY: Congestive heart failure. Hypertension. . Spinal fusion. RADIATION DOSE: 10.62 CTDI (mGy) COMPARISON: . TECHNIQUE: Volumetric scanning was performed using a multi-row detector CT scanner during bolus infu sharad of 74 ml Omnipaque 350 (iohexol) nonionic water-soluble contrast as a single exam dose. The mike a was post processed with a variety of visualization algorithms including full volume maximum intensi ty projection and sliding thin slab reformation. Using automated exposure control and adjustment of t he mA and/or kV according to patient size, radiation dose was kept as low as reasonably achievable to obtain optimal diagnostic quality images. DICOM format image data is available electronically for r eview and comparison. FINDINGS: There is mild interstitial edema present. There is no evidence for central pulmonary emboli. There is no mediastinal or axillary adenopathy. There is no pleural effusion Upper abdominal contents are unremarkable. CONCLUSION: 1. Negative for central pulmonary emboli Electronically signed by: Pascual Tinsley MD Board Certified Radiologist 07/30/2018 3:15 PM EST
--- NOTE | 2018-07-30 15:36 | ED ---
HPI General Chief Complaint: Chest Pain Stated Complaint: Medical Time Seen by Provider: 07/30/18 12:13 Source: patient Mode of arrival: ambulatory Limitations: no limitations History of Present Illness HPI narrative: Patient is a 37-year-old male, past medical history significant for hypertension, hyperlipidemia, previous CA secondary to performance- enhancing drugs, with a family history significant for early cardiac disease with sudden cardiac in a relative at the age of 40. He presents with complaint of chest pain that began shortly after eating pizza for breakfast. He took 2 nitroglycerin which helped with the chest pain but states he is feeling worse overall. He does also take Viagra, sildenafil, propanolol, regularly. He does also take Nuvigil which he understands reasons his heart rate. MD complaint: Reports chest pain STEMI Alert: No Onset (ago): hour(s) Duration: constant Onset: during rest Pain location: Reports substernal Severity: moderate Quality: Reports heaviness and similar to prior CA Pain radiation: Reports none Relieving factors: nitroglycerin Exacerbating factors: nothing Treatments prior to arrival chest pain: Reports nitroglycerin Related Data Home Medications Medication Instructions Recorded Confirmed prazosin [Minipress] 7 mg PO HS 04/01/18 07/30/18 clonazepam 1 mg PO TID 07/30/18 07/30/18 hydrocodone-acetaminophen 1 tab PO Q4-6H PRN 07/30/18 07/30/18 hydroxyzine pamoate 25 mg PO QID PRN 07/30/18 07/30/18 lithium carbonate 600 mg PO BID 07/30/18 07/30/18 melatonin 5 mg PO HS PRN 07/30/18 07/30/18 meloxicam [Mobic] 15 mg PO DAILY 07/30/18 07/30/18 propranolol 60 mg PO HS 07/30/18 07/30/18 sildenafil (antihypertensive) 20 mg PO BID PRN 07/30/18 07/30/18 valsartan 160 mg PO DAILY 07/30/18 07/30/18 zolpidem [Ambien] 10 mg PO HS PRN 07/30/18 07/30/18 Allergies Allergy/AdvReac Type Severity Reaction Status Date / Time No Known Allergies Allergy Verified 07/30/18 12:10 Review of Systems ROS: all other systems reviewed are negative [facility] Medical History Medical History Bipolar 1 disorder (Acute) CHF (congestive heart failure) (Acute) Complex posttraumatic stress disorder (Acute) Hypercholesteremia (Acute) Hypertension (Acute) Surgical History Surgical History H/O vasectomy (Acute) Hx of spinal fusion (Acute) S/P hardware removal (Acute) Family History Family History Father Family history of acute myocardial infarction Grandparent Family history of acute myocardial infarction Social History Social History Substance History: No History of Abuse Second Hand Smoke Exposure: No Smoking Status: Former smoker Tobacco Type: Cigarettes How Often Do You Have a Drink Containing Alcohol: 4 or more times a week Recent Travel in [facility] within the Last 8 Weeks: No Recent Out of Country Travel within the Last 8 Weeks: No Immunization History Tetanus Immunization: Unsure Tetanus Immunization Year if Known: 2016 Exam Narrative Exam Narrative: GENERAL: Well-appearing male SKIN: Focused skin assessment warm/dry. HEAD: Atraumatic. Normocephalic. EYES: Pupils equal and round. No scleral icterus. No injection or drainage. ENT: No nasal bleeding or discharge. Mucous membranes pink and moist. NECK: Trachea midline. No JVD. CARDIOVASCULAR: Tachycardic but regular. No murmur appreciated. Intact and equal peripheral pulses. RESPIRATORY: No accessory muscle use. Clear to auscultation. Breath sounds equal bilaterally. GASTROINTESTINAL: Abdomen soft, non-tender, nondistended. Hepatic and splenic margins not palpable. MUSCULOSKELETAL: No obvious deformities. No clubbing. No cyanosis. No edema. NEUROLOGICAL: Awake and alert. No obvious cranial nerve deficits. Motor grossly within normal limits. Normal speech. PSYCHIATRIC: Appropriate mood and affect; insight and judgment normal. Course Initial Documented Vital Signs Temperature 97.7 F 07/30/18 12:08 Pulse Rate 145 H 07/30/18 12:08 Respiratory Rate 22 07/30/18 12:08 Blood Pressure 90/53 L 07/30/18 12:08 Pulse Oximetry 97 07/30/18 12:08 Last Documented Vital Signs Temperature 97.7 F 07/30/18 12:08 Pulse Rate 114 H 07/30/18 14:45 Respiratory Rate 17 07/30/18 14:45 Blood Pressure 107/53 L 07/30/18 14:45 Pulse Oximetry 100 07/30/18 14:45 Sign Out Sign Out Data: Patient Sign Out occurred on 07/30/18 at 15:44. Patient's care was discussed, and care was transferred from Sapna Sánchez MD to Allegra Cardona. Sign Out Comment: CTA and plan for admit. Last updated by Sapna Sánchez MD at 07/30/18 15:28 Post-Handoff Eval: This patient was signed out to me pending CTA for PE results prior to admission for the evaluation of chest pain. The CTA is negative for PE. The patient reports that he has been pain-free since being medicated. He used nitroglycerin prior to arrival. The patient is being admitted to the chest pain center for further evaluation. Medical Decision Making MDM Narrative Medical decision making narrative: Patient is a 37-year-old male who presents with complaint of chest pain that began shortly after eating pizza. On arrival he was tachycardic with a blood pressure in the 90s. IV was immediately established. EKG appeared to be possible sinus but was also possible atrial flutter. Patient was given 6 mg of adenosine treating for presumed possible SVT. This did reveal that he was in sinus tachycardia. His blood pressure then decreased further with his heart rate decreasing to the 110s. He was given fluid boluses to which his heart rate and blood pressure did both respond. Labs are relatively unremarkable. After blood pressure had stabilized CTA was done and is pending at time of checkout for Medical Screen Exam Complete: Yes Emergency Medical Condition: Yes Differential Diagnosis Differential Diagnosis: Differential diagnosis includes but is not limited to acute coronary syndrome with dysrhythmia, pulmonary embolism, medication adverse effect. Medical Records Medical records reviewed: Yes I reviewed the patient's medical records. Lab Data Lab results reviewed: Yes I reviewed the patient's lab results. Result diagrams: 07/30/18 12:20 07/30/18 12:20 Lab Results 07/30/18 07/30/18 07/30/18 Range/Units 12:20 12:20 12:20 WBC 10.3 (4.0-11.0) th/mm3 RBC 4.52 (4.50-5.90) mil/mm3 Hgb 13.3 (13.0-17.0) gm/dL Hct 38.9 L (39.0-51.0) % MCV 86.1 (80.0-100.0) fL MCH 29.5 (27.0-34.0) pg MCHC 34.3 (32.0-36.0) % RDW 14.4 (11.6-17.2) % Plt Count 261 (150-450) th/mm3 MPV 7.1 (7.0-11.0) fL Neut % (Auto) 79.6 H (16.0-70.0) % Lymph % (Auto) 12.5 (9.0-44.0) % [place] % (Auto) 6.2 (0.0-8.0) % Eos % (Auto) 1.3 (0.0-4.0) % Baso % (Auto) 0.4 (0.0-2.0) % Neut # (Auto) 8.2 H (1.8-7.7) th/mm3 Lymph # (Auto) 1.3 (1.0-4.8) th/mm3 [place] # (Auto) 0.6 (0.0-0.9) th/mm3 Eos # (Auto) 0.1 (0.0-0.4) th/mm3 Baso # (Auto) 0.0 (0.0-0.2) th/mm3 WBC Differential . Differential Comment Auto diff final PT 10.3 (9.8-11.6) sec INR 1.0 Ratio APTT 24.2 (23.4-31.7) sec Sodium 143 (136-145) meq/L Potassium 3.0 L (3.5-5.1) meq/L Chloride 108 H (98-107) meq/L Carbon Dioxide 25.6 (21.0-32.0) meq/L Anion Gap 9 (5-15) meq/L BUN 19 H (7-18) mg/dL Creatinine 1.60 H (0.60-1.30) mg/dL Estimated GFR 49 L (>89) mL/min Random Glucose 152 H (74-106) mg/dL Calcium 8.8 (8.5-10.1) mg/dL Total Bilirubin 0.8 (0.2-1.0) mg/dL AST 91 H (15-37) U/L ALT 68 (12-78) U/L Alkaline Phosphatase 105 (45-117) U/L Troponin I 0.04 (0.02-0.05) ng/mL Total Protein 6.7 (6.4-8.2) g/dL Albumin 3.8 (3.4-5.0) g/dL Imaging Data Attestation: I personally reviewed and interpreted this imaging study as follows : Radiologist's impression: Chest X-Ray 07/30/18 12:24 CONCLUSION: No acute cardiopulmonary disease. Chest CTA 07/30/18 14:40 CONCLUSION: 1. Negative for central pulmonary emboli ECG Data EKG Prior to Arrival: Yes Attestation: I personally reviewed and interpreted this ECG as follows: ( Regular rhythm with a rate in the 140s. There is some ST depression in lead V2. ) Discharge Plan Discharge Order Discharge Orders: ED Use Only Admit Order (Routine); Ordered 07/30/18 Ordered By: Allegra Cardona Discharge Details Diagnosis: Acute chest pain Physicians Team ED Provider: Allegra Cardona Primary Care Provider: UNKNOWN, Rxs /Orders / Referrals /Forms Prescriptions: No Action prazosin [Minipress] 5 mg Capsule 7 mg PO HS RF: 0 propranolol 60 mg Capsule,Extended Release 24 Hr 60 mg PO HS RF: 0 valsartan 160 mg Tablet 160 mg PO DAILY RF: 0 sildenafil (antihypertensive) 20 mg Tablet 20 mg PO BID PRN (Reason: Erectile Dysfunction) RF: 0 hydrocodone-acetaminophen 5-325 mg Tablet 1 tab PO Q4-6H PRN (Reason: Pain) RF: 0 meloxicam [Mobic] 15 mg Tablet 15 mg PO DAILY RF: 0 clonazepam 1 mg Tablet 1 mg PO TID RF: 0 lithium carbonate 600 mg Capsule 600 mg PO BID RF: 0 zolpidem [Ambien] 10 mg Tablet 10 mg PO HS PRN (Reason: Insomnia) RF: 0 hydroxyzine pamoate 25 mg Capsule 25 mg PO QID PRN (Reason: Anxiety) RF: 0 melatonin 5 mg Tablet 5 mg PO HS PRN (Reason: Insomnia) RF: 0 Discharge Interventions Interventions: Vital Signs Last Done: 07/30/18 12:17 Status ED Status: With Doctor
[2018-07-30] MEDS ORDERED: Acetaminophen 325 MG Tablet PO PRN (16:48)
[2018-07-30] MEDS ORDERED: Bisacodyl 10 MG Supp RECTAL PRN (16:48)
--- NOTE | 2018-07-30 16:55 | P.HPIM ---
History of Present Illness Service: Hospitalist Primary Care Physician: UNKNOWN Chief Complaint: Chest pain History of Present Illness: Mr. Menjivar is a 37 year old male with a history of PTSD, anxiety, chronic back pain, bipolar disorder who presents to the emergency department on 07/30/2018 due to acute onset of left-sided chest pressure. Patient woke up this morning and had pizza for breakfast. Subsequently, he felt significant chest pressure on his left side with a sensation of an elephant sitting on his chest. He also had some dizziness and lightheadedness and partial visual loss. He felt clammy. His chest pressure radiated to his jaws. He took nitroglycerin which subsided some of his symptoms. One of his friends who works as a physician with PTSD via [employer] came over to patient's place and recommended that he goes to the emergency department. Patient denies any shortness of breath, fever or chills. No changes in bowel or bladder habits. Patient was evaluated in March 2018 with regards to chest pain. He underwent echo study as well as Lexiscan which were largely unremarkable. Past medical history: PTSD, bipolar disorder, anxiety Past surgical history: Back surgery Social history: Patient does not smoke cigarettes. He often does binge drinking. Last drink was 2 days ago. He has used cocaine before. His last cocaine use was 2 weeks prior to this admission. Denies using IV drugs. Family history: Both parents with alcoholism and depression. Recent Cardiac work up: Echo 03/2018: The left ventricular systolic function is hyperdynamic with an estimated ejection fraction in the range of 65-70%. Normal left ventricular size. Wall thickness is normal. No regional wall motion abnormalities are present. Trace mitral valve regurgitation. Trivial pulmonary valve regurgitation. Lexiscan 03/2018: Distribution: The maximum perfused segment at stress is inthe anterior inferior wall.Perfusion Study: The pattern of perfusion at stress is within normal limits. Gated Study: There are intact wall motion and wall thickening without hypokinetic or dyskinetic segments. The ejection fraction is calculated at 45%. RISK CATEGORY: Low (<1% Annual Motality Rate) Review of Systems Review of Systems: all other systems reviewed are negative [facility] Medical History Medical History Bipolar 1 disorder (Acute) CHF (congestive heart failure) (Acute) Complex posttraumatic stress disorder (Acute) Hypercholesteremia (Acute) Hypertension (Acute) Surgical History Surgical History H/O vasectomy (Acute) Hx of spinal fusion (Acute) S/P hardware removal (Acute) Family History Family History Father Family history of acute myocardial infarction Grandparent Family history of acute myocardial infarction Social History Social History Substance History: No History of Abuse Second Hand Smoke Exposure: No Smoking Status: Former smoker Tobacco Type: Cigarettes How Often Do You Have a Drink Containing Alcohol: 4 or more times a week Recent Travel in [facility] within the Last 8 Weeks: No Recent Out of Country Travel within the Last 8 Weeks: No Immunization History Tetanus Immunization: Unsure Tetanus Immunization Year if Known: 2015 Medications and Allergies Allergies Allergy/AdvReac Type Severity Reaction Status Date / Time No Known Allergies Allergy Verified 07/30/18 12:10 Home Medications Medication Instructions Recorded Confirmed Type prazosin [Minipress] 7 mg PO HS 04/01/18 07/30/18 History clonazepam 1 mg PO TID 07/30/18 07/30/18 History hydrocodone-acetaminophen 1 tab PO Q4-6H PRN 07/30/18 07/30/18 History hydroxyzine pamoate 25 mg PO QID PRN 07/30/18 07/30/18 History lithium carbonate 600 mg PO BID 07/30/18 07/30/18 History melatonin 5 mg PO HS PRN 07/30/18 07/30/18 History meloxicam [Mobic] 15 mg PO DAILY 07/30/18 07/30/18 History propranolol 60 mg PO HS 07/30/18 07/30/18 History sildenafil (antihypertensive) 20 mg PO BID PRN 07/30/18 07/30/18 History valsartan 160 mg PO DAILY 07/30/18 07/30/18 History zolpidem [Ambien] 10 mg PO HS PRN 07/30/18 07/30/18 History Active Medications: Active Medications Acetaminophen (Tylenol) 650 mg PO Q4H PRN PRN Reason: Headache, fever, pain 1-4 Al Hydroxide/Mg Hydroxide (Milk Of Magnesia Liq) 30 ml PO Q12H PRN PRN Reason: Mild Constipation Bisacodyl (Dulcolax Supp) 10 mg RECTAL DAILY PRN PRN Reason: SEVERE CONSITIPATION Lactulose (Lactulose Liq) 30 ml PO DAILY PRN PRN Reason: SEVERE CONSITIPATION Ondansetron HCl (Zofran Inj) 4 mg IV.PUSH Q6H PRN PRN Reason: NAUSEA OR VOMITING Sennosides (Senokot) 17.2 mg PO Q12H PRN PRN Reason: Moderate Constipation Sodium Chloride (Ns Flush) 2 ml IV.FLUSH UNSCH PRN PRN Reason: FLUSH AFTER USING IV ACCESS Sodium Chloride (Ns Flush) 2 ml IV.FLUSH BID KIAN Sodium Chloride (Ns Flush) 2 ml IV.FLUSH PRN PRN PRN Reason: FLUSH AFTER USING IV ACCESS Physical Exam Vital signs: Last Vital Signs Temp 97.7 F 07/30/18 12:08 Pulse 114 H 07/30/18 14:45 Resp 17 07/30/18 14:45 BP 107/53 L 07/30/18 14:45 Pulse Ox 100 07/30/18 14:45 Intake & Output 07/28/18 07/29/18 07/30/18 07/31/18 06:59 06:59 06:59 06:59 Intake Total 1500 / 1500 Balance 1500 / 1500 Weight 92.986 kg Narrative: GENERAL: This is a well-nourished, well-developed patient, in no apparent distress. SKIN: No rashes, ecchymoses or lesions. Warm and dry. HEAD: Atraumatic. Normocephalic. No temporal or scalp tenderness. EYES: Pupils equal round and reactive. No injection or drainage. ENT: Nose without bleeding, purulent drainage or septal hematoma. Airway patent. NECK: Trachea midline. No lymphadenopathy. Supple, nontender, no meningeal signs. CARDIOVASCULAR: Regular rate and rhythm without murmurs, gallops, or rubs. No JVD. RESPIRATORY: Clear to auscultation. Breath sounds equal bilaterally. No wheezes , rales, or rhonchi. GASTROINTESTINAL: Abdomen soft, non-tender, nondistended. No guarding. MUSCULOSKELETAL: Extremities without clubbing, cyanosis, or edema. NEUROLOGICAL: Awake and alert. Cranial nerves II through XII intact. No focal neurological deficits. Normal speech. Results Labs CBC & Chem 7: 07/30/18 12:20 07/30/18 12:20 Imaging Impressions Chest X-Ray 07/30/18 12:24 CONCLUSION: No acute cardiopulmonary disease. Chest CTA 07/30/18 14:40 CONCLUSION: 1. Negative for central pulmonary emboli Caprini VTE Risk Assessment Caprini VTE Risk Assessment: Moderate/High Risk (score >= 2) Caprini Risk Assessment Model: Point Value = 1 Point Value = 2 Point Value = 3 Point Value = 5 Age 41-60 Minor surgery BMI > 25 kg/m2 Swollen legs Varicose veins or History of unexplained or recurrent spontaneous Oral contraceptives or hormone replacement Sepsis (< 1 month) Serious lung disease, including pneumonia (< 1 month) Abnormal pulmonary function Acute myocardial infarction Congestive heart failure (< 1 month) History of inflammatory bowel disease Medical patient at bed rest Age 61-74 Arthroscopic surgery Major open surgery (> 45 min) Laparoscopic surgery (> 45 min) Malignancy Confined to bed (> 72 hours) Immobilizing plaster cast Central venous access Age >= 75 History of VTE Family history of VTE Factor V Leiden Prothrombin [id number] Lupus anticoagulant Anticardiolipin antibodies Elevated serum homocysteine Heparin-induced thrombocytopenia Other congenital or acquired thrombophilia Stroke (< 1 month) Elective arthroplasty Hip, pelvis, or leg fracture Acute spinal cord injury (< 1 month) Prophylaxis Regimen: Total Risk Factor Score Risk Level Prophylaxis Regimen 0-1 Low Early ambulation 2 Moderate Order ONE of the following: *Sequential Compression Device (SCD) *Heparin 5000 units SQ BID 3-4 Higher Order ONE of the following medications: *Heparin 5000 units SQ TID *Enoxaparin/Lovenox 40 mg SQ daily (WT < 150 kg, CrCl > 30 mL/min) *Enoxaparin/Lovenox 30 mg SQ daily (WT < 150 kg, CrCl > 10-29 mL/min) *Enoxaparin/Lovenox 30 mg SQ BID (WT < 150 kg, CrCl > 30 mL/min) AND/OR *Sequential Compression Device (SCD) 5 or more Highest Order ONE of the following medications: *Heparin 5000 units SQ TID (Preferred with Epidurals) *Enoxaparin/Lovenox 40 mg SQ daily (WT < 150 kg, CrCl > 30 mL/min) *Enoxaparin/Lovenox 30 mg SQ daily (WT < 150 kg, CrCl > 10-29 mL/min) *Enoxaparin/Lovenox 30 mg SQ BID (WT < 150 kg, CrCl > 30 mL/min) AND *Sequential Compression Device (SCD) Assessment and Plan Plan Mr. Menjivar is a pleasant 37-year-old with a history of PTSD, bipolar disorder who presents to the emergency department on 07/30/2018 due to acute onset of chest pressure on the left side, radiating to his jaw and associated with clammy, cold sweats, lightheadedness and dizziness as well as partial blindness. Upon taking nitroglycerin, patient reports some relief of his symptoms. Patient underwent Lexiscan study as well as echo in March 2018 which were largely unremarkable. Acute chest pain Patient's left-sided chest pressure, associated symptoms including jaw pain as well as cold sweats are concerning for ACS. Troponin upon admission is 0.04. We will obtain 2 sets of troponins as well as 2 sets of EKGs. Given patient's typical symptoms, will consult cardiology for an evaluation. Patient may benefit from cardiac catheterization. Patient does have a history of cocaine abuse which was 2 weeks ago. We will hold off using any beta-donavon for now. Continue nitroglycerin as needed for chest pain. Acute kidney injury Hypokalemia Acute kidney injury is likely due to poor oral intake. We will initiate normal saline 100 cc/h. We will provide 40 mEq of KCl and obtain BMP in the morning. PTSD Bipolar disorder Insomnia Continue clonazepam 1 mg p.o. 3 times daily, trazodone 50 mg nightly We will hold off using lithium for now. Alcohol withdrawal Cocaine abuse -last used 2 weeks ago. Initiate CIWA protocol. Patient is counseled regarding alcohol abuse as well as cocaine abuse. Urine drug screen was not completed. Will obtain UDS. Full code. Lovenox.
[2018-07-30] MEDS ORDERED: Haloperidol Inj 5 MG/ML Ampul IV.PUSH PRN (17:22)
[2018-07-30] MEDS: Enoxaparin Inj 40 MG/0.4 ML Syringe SQ SCH (19:03)
[2018-07-30] MEDS: clonazePAM 1 MG Tablet PO SCH (19:03)
[2018-07-30] MEDS: Sod Chloride 0.9% Inj 1,000 ML IV.CONT SCH (19:30)
[2018-07-30] MEDS ORDERED: traZODone 50 MG Tablet PO SCH (21:00)
[2018-07-31 02:37] LABS: Potassium 3.5 meq/L (3.5-5.1)
[2018-07-31 02:46] LABS: Calcium 7.9 mg/dL (8.5-10.1); Carbon Dioxide 26.4 meq/L (21.0-32.0); Troponin I 0.04 ng/mL (0.02-0.05)
[2018-07-31] MEDS: Sod Chloride 0.9% Inj 1,000 ML IV.CONT SCH ×2 (03:57→16:18)
[2018-07-31] MEDS: clonazePAM 1 MG Tablet PO SCH ×3 (08:46→18:04)
[2018-07-31] MEDS: LORazepam 1 MG Tablet PO PRN ×2 (08:47→15:45)
[2018-07-31] MEDS ORDERED: Morphine Inj 4 MG/ML Vial IV.PUSH PRN (09:29)
--- NOTE | 2018-07-31 10:42 | P.PNIM ---
Subjective Interval history: Patient with chest pain. Patient states he is continued to have chest pain throughout the night and morning. He describes it as " sensation of elephant sitting on his chest". He states it was partially relieved with nitroglycerin. He reports associated shortness of breath and lightheadedness. HE denies any palpitations. He denies any fever or chills. He denies any nausea, vomiting or abdominal pain. Physical Exam Vital signs: Last Vital Signs Temp 97.7 F 07/31/18 07:31 Pulse 64 07/31/18 07:31 Resp 16 07/31/18 07:31 BP 121/64 07/31/18 07:31 Pulse Ox 96 07/31/18 07:31 Intake & Output 07/29/18 07/30/18 07/31/18 08/01/18 06:59 06:59 06:59 06:59 Intake Total 2500 / 2500 Balance 2500 / 2500 Weight 92.986 kg Narrative: GENERAL: This is a well-nourished, well-developed male patient, in no apparent distress. Awake and alert. SKIN: Warm and dry. Multiple tattoos noted. HEENT: Atraumatic. Normocephalic. Pupils equal round and reactive. No sclera icterus. No nasal drainage. MMM. Airway patent. NECK: Trachea midline. CARDIOVASCULAR: Regular rate and rhythm without murmurs, gallops, or rubs. RESPIRATORY: Clear to auscultation. Breath sounds equal bilaterally. No wheezes , rales, or rhonchi. GASTROINTESTINAL: Abdomen soft, non-tender, nondistended. No guarding. MUSCULOSKELETAL: Extremities without clubbing, cyanosis, or edema. NEUROLOGICAL: Awake and alert. Cranial nerves II through XII intact. No focal neurological deficits. Motor function grossly intact. Normal speech. Results Labs CBC & Chem 7: 07/30/18 12:20 07/31/18 01:56 Imaging Imaging: Impressions Chest X-Ray 07/30/18 12:24 CONCLUSION: No acute cardiopulmonary disease. Chest CTA 07/30/18 14:40 CONCLUSION: 1. Negative for central pulmonary emboli Assessment and Plan Plan 37-year-old with a history of PTSD, bipolar disorder, and polysubstance abuse admitted with acute chest pain: Acute chest pain Patient reports left-sided chest pressure with radiation into the jaw with associated shortness of breath and cold sweats concerning for ACS. Troponins flat s/p negative stress test in Mar -Cardiology consulted, appreciate assistance. CT coronary arteries ordered. Pending study results, patient may need cardiac catheterization. -Morphine and/or NTG prn chest pain -Continuous cardiac monitoring -Due to history of cocaine use, will hold off on using beta-donavon -If CT coronary arteries are normal may be discharged later today pending cardiology clearance ABRAHAM, suspect due to poor oral intake Cr 1.60, BUN 19 -Cr improved to 1.02 s/p IVF hydration -Avoid nephrotoxic agents -Continue to monitor kidney function as indicated Hypokalemia -Resolved status post p.o. repletion PTSD Bipolar disorder Insomnia -Continue on clonazepam 1 mg p.o. 3 times daily, trazodone 50 mg nightly Alcohol withdrawal Cocaine abuse UDS + amphetamines, benzodiazepines, cocaine serum EtOH 45 -CIWA protocol -Patient counseled regarding alcohol abuse as well as cocaine abuse. -thiamine/MVI with folic acid daily -Monitor for signs of withdrawal DVT prophylaxis -Lovenox CTA coronaries: unremarkable study Discharge patient to home Condition on discharge: Improved Regular Diet as tolerated Ad Brigitte activity Rx written: None Follow-up with primary care physician and cardiology Progress Note: Quality VTE Deep Vein Thrombosis/Pulmonary Embolism Present on Admission: Yes
[2018-07-31 10:43] LABS: Amphetamine Screen,Urine Pos (Neg); Barbiturate Screen,Urine Neg (Neg); Cannabinoid Screen,Urine Neg (Neg); Cocaine Screen,Urine Pos (Neg)
[2018-07-31 10:44] LABS: Opiate Screen,Urine Neg (Neg)
--- NOTE | 2018-07-31 12:12 | MB ---
cc: Chirag Carreon MD DATE: 07/30/2018 REASON FOR CONSULTATION: Chest pain. HISTORY OF PRESENT ILLNESS: The patient is a 37-year-old white male with a history of hypertension, hyperlipidemia, posttraumatic stress disorder, who presented to the hospital yesterday with complaints of chest discomfort. The patient states he has had occasional left upper chest discomfort for several months. Many episodes last several hours in a constant fashion. Occasionally, they are associated with shortness of breath and slight nausea. He came in yesterday because the discomfort was especially severe and because he felt severely lightheaded after taking 2 sublingual nitroglycerin for the pain. Yesterday's episode of chest discomfort persists today (almost 24 hours later). He denies pleurisy, palpitations, paroxysmal nocturnal dyspnea, recent pedal edema, fevers. The patient had similar symptoms during the hospitalization 3 months ago, during which, a nuclear stress test was reportedly normal. PAST MEDICAL HISTORY: 1. Hypertension. 2. Hyperlipidemia. 3. Posttraumatic stress disorder. PAST SURGICAL HISTORY: 1. Vasectomy. 2. Three lumbar back surgeries. CARDIAC MEDICATIONS AT HOME: 1. Prazosin 7 mg at bedtime. 2. Propranolol 60 mg at bedtime. 3. Valsartan 160 mg daily. ALLERGIES: NO KNOWN DRUG ALLERGIES. FAMILY HISTORY: The patient's father sustained a myocardial infarction at age 40. SOCIAL HISTORY: The patient quit smoking at age 19. He denies drug or alcohol abuse. REVIEW OF SYSTEMS: As in the history of present illness, otherwise negative or noncontributory. He also denies headache, abdominal pain, melena, dyspepsia, bright red blood per rectum, fevers. PHYSICAL EXAMINATION: VITAL SIGNS: Blood pressure 121/64 with a pulse of 64, respirations 16. GENERAL: He is a well-developed, well-nourished white male, in no acute distress. HEENT: Jugular venous pressure is normal. Carotid pulses are 2+ bilaterally and without bruits. CHEST: Reveals clear lungs rodriguez. CARDIAC: He has a bradycardic, regular rhythm without S3, S4, or murmur. ABDOMEN: He has a soft, nontender abdomen. Bowel sounds are present. There is no definite hepatosplenomegaly. EXTREMITIES: Reveals no clubbing, cyanosis or edema. LABORATORY DATA: EKG from 07/30/2018 shows sinus tachycardia, otherwise normal EKG. Chest x-ray shows no acute disease. LABORATORY DATA: Includes normal CBC. Potassium 3.5, BUN 13, creatinine 1.02. Troponin 0.05. IMPRESSION: Atypical chest pains for the past few months in this 37-year-old white male with a history of hypertension, hyperlipidemia and posttraumatic stress disorder. Despite constant chest discomfort since yesterday, troponin levels are negative for myocardial infarction and EKG showed no acute ST segment or T-wave changes. In addition, he had a normal nuclear stress test [address] angiogram of the chest reportedly is negative for pulmonary embolism. He also has some chest wall tenderness on exam, reproducing his symptoms. The patient does have a number of risk factors for coronary disease including family history, hypertension, hyperlipidemia. RECOMMENDATIONS: Check a coronary CT angiogram. If there is definitive evidence for high-grade coronary artery disease, then would recommend cardiac catheterization. Chirag Carreon MD [facility]/ct , 11:41 AM , 11:49 AM [facility]DI
--- NOTE | 2018-07-31 14:48 | ECG ---
Date Performed: 07/30/2018 Time Performed: 12:29:44 PTAGE: 37 years EKG: SINUS TACHYCARDIA NONSPECFIC T WAVE FLATTENING ANTEROLATERALLY Compared to PREVIOUS TRACING heart rate has increased from 76 to 128 T wave flattening is new PREVIO US TRACIN07/30/2018 12.20 DOCTOR: Del Cruz Interpretating Date/Time 07/31/2018 14:47:25
--- NOTE | 2018-07-31 14:50 | ECG ---
Date Performed: 07/30/2018 Time Performed: 13:07:11 PTAGE: 37 years EKG: SINUS TACHYCARDIA nonspecific t wave change slight right ventricular conduction disturbance Since PREVIOUS TRACING , no significant change noted PREVIOUS TRACIN07/30/2018 DOCTOR: Del Cruz Interpretating Date/Time 07/31/2018 14:49:03
--- NOTE | 2018-07-31 15:10 | ECG ---
Date Performed: 07/30/2018 Time Performed: 16:56:15 PTAGE: 37 years EKG: SINUS TACHYCARDIA WITH SHORT AL INTERVAL (.13) SLIGHT RIGHT VENTRICULAR CONDUCTION DISTURBA NCE Compared to previous tracing heart rate has decreased from 111 to 103. T wave changes have improv ed. ABNORMAL RHYTHM ECG PREVIOUS TRACING : 07/30/2018 13.07 DOCTOR: Del Cruz Interpretating Date/Time 07/31/2018 15:08:31
[2018-07-31] MEDS ORDERED: Metoprolol Inj 5 MG/5 ML Vial ONE (17:13)
[2018-07-31] MEDS ORDERED: Nitroglycerin SL (Override) 0.4 MG Tab SL ONE (17:13)
[2018-07-31] MEDS: Enoxaparin Inj 40 MG/0.4 ML Syringe SQ SCH (18:05)
--- NOTE | 2018-07-31 18:50 | CT ---
EXAM DATE: 07/31/2018 6:38 PM EST AGE/SEX: 37 years / Male INDICATIONS: Chest pain. CLINICAL DATA: This is the patient's initial encounter. Patient reports that signs and symptoms have been present for 2 days and indicates a pain score of 4/10. MEDICAL/SURGICAL HISTORY: Hypertension. Cardiovascular disease. . Back surgeries RADIATION DOSE: 11.35 CTDI (mGy) COMPARISON: [facility], [place] MYOCARDIAL PERF PHARM SPECT W/EF, 04/02/2018. . TECHNIQUE: Volumetric scanning was performed using a multi-row detector CT scanner during bolus inf usion of 100 ml Omnipaque 350 (iohexol) nonionic water-soluble contrast as a single exam dose. Imag es were reconstructed using a retrospective gating algorithm including single sector and multi-sector algorithms at multiple phases of the cardiac cycle. Images were interpreted using a combination of 2 D and 3D visualization modes including curved planar reformation, thin slab maximum intensity project ion and volume rendering. Using automated exposure control and adjustment of the mA and/or kV accordi ng to patient size, radiation dose was kept as low as reasonably achievable to obtain optimal diagnos tic quality images. DICOM format image data is available electronically for review and comparison. FINDINGS: VESSEL ANALYSIS: There are three aortic valve leaflets with normal origin of the coronary ostia. DOMINANCE: The coronary system is dominant. LEFT MAIN: Normal size vessel without calcification or stenosis. LAD: Normal size vessel without calcification or stenosis. CIRCUMFLEX: Normal size vessel without calcification or stenosis. RCA: Normal size vessel without calcification or stenosis OTHER: The patient's calcium score is 0. CONCLUSION: 1. Unremarkable study. Electronically signed by: Ora Harris MD Board Certified Radiologist 07/31/2018 6:49 PM EST
[2018-07-31 19:18] VITALS: BP 155/90; PULSE 89; RESP 20; TEMP 97.6; O2SAT 94
== END 2018-07-31 21:20 | disposition home or self-care (01) ==
LOC: NEDA 12:05 → NEPE 12:05 → NEDA 17:21 → NEPFCDU 17:22
PROVIDERS: ADMIT Family Medicine; ATTEND Family Medicine
DX: Z98.1 Arthrodesis status; I50.9 Heart failure, unspecified; Y90.2 Blood alcohol level of 40-59 mg/100 ml; Z79.1 Long term (current) use of non-steroidal anti-inflammatories (NSAID); F17.210 Nicotine dependence, cigarettes, uncomplicated; Z79.899 Other long term (current) drug therapy; E78.5 Hyperlipidemia, unspecified; Z82.49 Family history of ischemic heart disease and other diseases of the circulatory system; R94.31 Abnormal electrocardiogram [ECG] [EKG]; F43.10 Post-traumatic stress disorder, unspecified; Z81.8 Family history of other mental and behavioral disorders; F14.10 Cocaine abuse, uncomplicated; F31.9 Bipolar disorder, unspecified; F10.239 Alcohol dependence with withdrawal, unspecified; N17.9 Acute kidney failure, unspecified; E87.6 Hypokalemia; I25.2 Old myocardial infarction; E78.00 Pure hypercholesterolemia, unspecified; R07.89 Other chest pain; I11.0 Hypertensive heart disease with heart failure; G47.00 Insomnia, unspecified
CPT/HCPCS: 71010; 71045; 71275; 75574; 80048; 80053; 80307; 84484; 85025; 85610; 85730; 90761; 90774; 90775; 90776; 90784; 93005; 96361; 96372; 96374; 96375; 96376; 99285; C8952; C9223; G0378; J0150; J0153; J1650; J3010; J7030; J7040; Q9967